=== PATIENT | female | born 1995 | race African-American/Black ===

== ENCOUNTER 2018-04-18 00:55 | Emergency (ER) | payer OTHER ==
[~2018-04-18] VITALS: Ht 154.9 cm; Wt 63.5 kg
[~2018-04-18 00:55] MED LIST: AMOX500C PO; CLOT12CR2 TP; PRED20TA PO; PROAIR HFA8.5 GM INH; TRIA15CR TP; TRIA15CR3 TP
[2018-04-18 01:25] VITALS: BP 116/62
[2018-04-18 01:50] LABS: BILIRUBIN,URINE NEGATIVE (NEG); CLARITY,URINE CLEAR; COLOR,URINE YELLOW; NITRITE,URINE NEGATIVE (NEG); PH,URINE 7.5; PROTEIN,URINE >=300 mg/dL (NEG-TRACE); UROBILINOGEN,URINE 0.2 mg/dL (0.2 mg/dL)
[2018-04-18 01:56] LABS: BACTERIA,URINE MANY /HPF (0-FEW); RBC,URINE OCC /HPF (0-2); WBC,URINE 20-40 /HPF (0-4)
[2018-04-18 01:57] LABS: SQUAMOUS EPITHELIAL CELL,UR MOD /LPF
--- NOTE | 2018-04-18 02:55 | PHYS DOC ---
Past Medical History Past Medical History: Asthma Additional Past Medical Histor: seasonal allergies, " skin condition" Past Surgical History: Alcohol Use: None Drug Use: None Adult General Chief Complaint Chief Complaint: VAGINAL BLEEDING HPI HPI Patient is a 22 year old female who presents with pelvic pain and vaginal discharge. She states she recently had -control implanted into her arm 3 weeks earlier. She tonight complains of irregular vaginal discharge and some pain. She has been having symptoms over the last 2-3 days. She was last sexually active one month ago. She denies fever or chills. She does endorse some irregular vaginal bleeding since the implant was placed. No nausea or vomiting. No fever. No flank pain. Review of Systems Review of Systems Constitutional: Denies fever or chills HENT: Denies Respiratory: Denies Cardiovascular: No additional information GI: Denies abdominal pain : Denies dysuria or hematuria Musculoskeletal: Denies back pain Integument: Denies rash or skin lesions Neurologic: Denies headache All other systems were reviewed and found to be within normal limits, except as documented in this note. Current Medications Current Medications Current Medications Medications (Trade) Dose Ordered Sig/Joan Start Time Stop Time Status Last Admin Dose Admin Azithromycin (Zithromax) 1,000 mg 1X ONCE 04/18/18 03:00 04/18/18 03:01 DC Ceftriaxone Sodium (Rocephin Im) 250 mg 1X ONCE 04/18/18 03:00 04/18/18 03:01 DC Metronidazole (Flagyl) 1,000 mg 1X ONCE 04/18/18 03:15 04/18/18 03:16 UNV Allergies Allergies Allergies Coded Allergies Type Severity Reaction Last Updated Verified Penicillins Allergy Intermediate 04/18/18 Yes Physical Exam Physical Exam Constitutional: Well developed, well nourished, no acute distress, non-toxic appearance HENT: Normocephalic, atraumatic, bilateral external ears normal, oropharynx moist Eyes: PERRLA Neck: Normal range of motion Cardiovascular:Heart rate regular rhythm, no murmur Lungs & Thorax: Bilateral breath sounds clear to auscultation Abdomen: Bowel sounds normal, soft, no tenderness Skin: Warm, dry, no erythema, no rash Neurologic: Alert and oriented X 3 Psychologic: Affect normal Pelvic: Normal external female genitalia. Vaginal mucosa is moist and uninflamed. There is copious white discharge present in the vault. The patient does have cervical motion tenderness. She has right adnexal tenderness but no mass. The left adnexal exam is normal. Current Patient Data Vital Signs Vital Signs Date Time Temp Pulse Resp B/P (MAP) Pulse Ox O2 Delivery O2 Flow Rate FiO2 04/18/18 01:25 98.1 78 16 116/62 (80) 98 Room Air 98.1 Lab Values Laboratory Tests Test 04/18/18 01:15 04/18/18 01:39 Urine Collection Type Unknown Urine Color Yellow Urine Clarity Clear Urine pH 7.5 Urine Specific [place] 1.015 Urine Protein >=300 mg/dL (NEG-TRACE) Urine Glucose (UA) Negative mg/dL (NEG) Urine Ketones (Stick) Negative mg/dL (NEG) Urine Blood Negative (NEG) Urine Nitrite Negative (NEG) Urine Bilirubin Negative (NEG) Urine Urobilinogen Dipstick 0.2 mg/dL (0.2 mg/dL) Urine Leukocyte Esterase Small (NEG) Urine RBC Occ /HPF (0-2) Urine WBC 20-40 /HPF (0-4) Urine Squamous Epithelial Cells Mod /LPF Urine Bacteria Many /HPF (0-FEW) Urine Mucus Mod /LPF POC Urine HCG, Qualitative Hcg negative (Negative) Microbiology 04/18/18 Wet Prep - Final, Complete EKG EKG [] Radiology/Procedures Radiology/Procedures [] Course & Med Decision Making Course & Med Decision Making Pertinent Labs and Imaging studies reviewed. (See chart for details) Patient is seen and examined in the emergency department. Pelvic exam as documented above. The exam was accompanied by a female registered nurse. Given the cervical motion tenderness and discharge, the patient will be given Rocephin and azithromycin in the emergency department. She will be discharged home on doxycycline. Urine test is negative and UA does not appear infected. 03:05: Wet mount is received. The patient does have Trichomonas. She is given 2 g of Flagyl in the emergency department. Plan remains for discharge home she' ll be placed on doxycycline. Sexual precautions are discussed with the patient. She is advised to refrain from sexual intercourse until her partner has also been evaluated and treated. She will return to the ER for any new or worsening symptoms. Dragon Disclaimer Dragon Disclaimer This electronic medical record was generated, in whole or in part, using a voice recognition dictation system. Departure Departure Referrals: NO PCP (PCP) Scripts Doxycycline Hyclate (DOXYCYCLINE HYCLATE) 100 Mg Capsule 1 CAP PO BID, #20 CAP Prov: PEREZ ALY DO 04/18/18 PEREZ ALY DO Apr 18, 2018 02:55
[2018-04-18] MEDS ORDERED: cefTRIAXone IM 250 MG VIAL IM ONE (03:00)
[2018-04-18] MEDS ORDERED: AZITHROMYCIN 250 MG TABLET. PO ONE (03:00)
[2018-04-18] MEDS ORDERED: DOXY100C2 PO (03:11)
[2018-04-18] MEDS ORDERED: metroNIDAZOLE 500 MG TABLET PO ONE (03:15)
[2018-04-20 15:26] LABS: GC PROBE Negative (Negative)
== END 2018-04-18 03:25 | disposition home or self-care (01) ==
LOC: ER 00:55
DX: R10.2 Pelvic and perineal pain (principal); N89.8 Other specified noninflammatory disorders of vagina; J45.909 Unspecified asthma, uncomplicated; Z88.0 Allergy status to penicillin
CPT/HCPCS: 81001; 81025; 87491; 87591; 96372; 99284; J0696; Q0111; Q0144

== ENCOUNTER 2018-09-14 15:09 | Emergency (ER) | payer OTHER ==
[~2018-09-14] VITALS: Ht 157.5 cm; Wt 63.5 kg
[~2018-09-14 15:09] MED LIST changes: +ALBU2.5V8 INH; +DOXY100C2 PO; -PROAIR HFA8.5 GM INH
[2018-09-14 17:10] VITALS: BP 115/76
[2018-09-14] MEDS ORDERED: ONDANSETRON ODT 4 MG TAB.RAPDIS. PO ONE (17:30)
[2018-09-14] MEDS ORDERED: HYDROcodone/APAP 5/325MG 1 TAB TABLET PO ONE (17:30)
[2018-09-14] MEDS ORDERED: NAPROXEN 500 MG TABLET PO STA (17:30)
[2018-09-14 18:08] LABS: BILIRUBIN,URINE NEGATIVE (NEG); CLARITY,URINE CLEAR; COLOR,URINE YELLOW; NITRITE,URINE NEGATIVE (NEG); PH,URINE 6.5; PROTEIN,URINE >=300 mg/dL (NEG-TRACE); UROBILINOGEN,URINE 0.2 mg/dL (0.2 mg/dL)
[2018-09-14 18:14] LABS: BACTERIA,URINE 0 /HPF (0-FEW); RBC,URINE 0 /HPF (0-2); SQUAMOUS EPITHELIAL CELL,UR FEW /LPF; WBC,URINE RARE /HPF (0-4)
[2018-09-14 18:16] LABS: BARBITURATES NEG (NEG); BENZODIAZEPINES NEG (NEG); CANNABINOIDS NEG (NEG); COCAINE NEG (NEG); METHADONE NEG (NEG); OPIATES NEG (NEG); PHENCYCLIDINE NEG (NEG)
[2018-09-14 18:20] LABS: AMPHETAMINE/METHAMPHETAMINE NEG (NEG)
--- NOTE | 2018-09-14 18:21 | RAD ---
PELVIS COMPLETE History: Pelvic pain for one month Comparison: None. Findings: Multiple transabdominal sonographic images of pelvis are submitted. Uterus measured 10.3 x 3.6 x 5.2 cm. Endometrium measured 0.4 cm. Right ovary measured 2.8 x 1.7 x 1.6 cm. Left ovary measured 3.3 x 3.1 cm x 3 cm. There is normal color flow and low resistance vascularity of the ovaries bilaterally. There is a hypoechoic lesion left ovary about 3.3 cm x 3 x 2.4 in size. There is minimal free fluid. Impression: 1. There is left ovarian cyst up to 3.3 cm, minimal free fluid. Electronically signed by: Alexander Rivera MD (09/14/2018 6:18 PM) [facility]
--- NOTE | 2018-09-14 18:26 | PHYS DOC ---
Past Medical History Past Medical History: Asthma Additional Past Medical Histor: seasonal allergies, " skin condition" Past Surgical History: Alcohol Use: None Drug Use: None Adult General Chief Complaint Chief Complaint: PELVIC PAIN HPI HPI Patient is a 23 year old female presenting to the ED today complaining of a sharp 10 out of 10 intermittent left pelvic pain that began a month ago. Patient denies anything specifically exacerbating or relieving the pain. She believes the pain is coming from her Implanon which she's had for 1 year. She would like the Implanon removed. Denies any concerns for STDs. Review of Systems Review of Systems Constitutional: Denies fever or chills [] Eyes: Denies change in visual acuity, redness, or eye pain [] HENT: Denies nasal congestion or sore throat [] Respiratory: Denies cough or shortness of breath [] Cardiovascular: No additional information not addressed in HPI [] GI: Reports left pelvic pain. Denies nausea, vomiting, bloody stools or diarrhea [] : Denies dysuria or hematuria [] Musculoskeletal: Denies back pain or joint pain [] Integument: Denies rash or skin lesions [] Neurologic: Denies headache, focal weakness or sensory changes [] All other systems were reviewed and found to be within normal limits, except as documented in this note. Current Medications Current Medications Current Medications Medications (Trade) Dose Ordered Sig/Joan Start Time Stop Time Status Last Admin Dose Admin Acetaminophen/ Hydrocodone Bitart (Lortab 5/325) 2 tab 1X ONCE 09/14/18 17:30 09/14/18 17:35 DC 09/14/18 17:46 2 TAB Naproxen (Naprosyn) 500 mg 1X STAT 09/14/18 17:30 09/14/18 17:35 DC 09/14/18 17:45 500 MG Ondansetron HCl (Zofran Odt) 4 mg 1X ONCE 09/14/18 17:30 09/14/18 17:35 DC 09/14/18 17:45 4 MG Allergies Allergies Allergies Coded Allergies Type Severity Reaction Last Updated Verified Penicillins Allergy Intermediate 04/18/18 Yes Physical Exam Physical Exam Constitutional: Well developed, well nourished, no acute distress, non-toxic appearance. [] HENT: Normocephalic, atraumatic, bilateral external ears normal, oropharynx moist, no oral exudates, nose normal. [] Eyes: PERRLA, EOMI, conjunctiva normal, no discharge. [] Neck: Normal range of motion, no tenderness, supple, no stridor. [] Cardiovascular:Heart rate regular rhythm, no murmur [] Lungs & Thorax: Bilateral breath sounds clear to auscultation [] Abdomen: Bowel sounds normal, soft, no tenderness, no masses, no pulsatile masses. [] Pelvic exam External pelvic appears normal, cervix is visualized, closed, no CMT, mild left adnexal tenderness on exam, no right adnexal tenderness, small amount of white discharge in the vaginal vault. Skin: Warm, dry, no erythema, no rash. [] Back: No tenderness, no CVA tenderness. [] Extremities: No tenderness, no cyanosis, no clubbing, ROM intact, no edema. [] Neurologic: Alert and oriented X 3, normal motor function, normal sensory function, no focal deficits noted. [] Psychologic: Affect normal, judgement normal, mood normal. [] Current Patient Data Vital Signs Vital Signs Date Time Temp Pulse Resp B/P (MAP) Pulse Ox O2 Delivery O2 Flow Rate FiO2 09/14/18 17:10 98.3 72 115/76 (89) 100 98.3 09/14/18 16:24 18 Room Air Lab Values Laboratory Tests Test 09/14/18 17:15 09/14/18 17:19 Urine Collection Type Void Urine Color Yellow Urine Clarity Clear Urine pH 6.5 Urine Specific [place] 1.015 Urine Protein >=300 mg/dL (NEG-TRACE) Urine Glucose (UA) Negative mg/dL (NEG) Urine Ketones (Stick) Negative mg/dL (NEG) Urine Blood Negative (NEG) Urine Nitrite Negative (NEG) Urine Bilirubin Negative (NEG) Urine Urobilinogen Dipstick 0.2 mg/dL (0.2 mg/dL) Urine Leukocyte Esterase Negative (NEG) Urine RBC 0 /HPF (0-2) Urine WBC Rare /HPF (0-4) Urine Squamous Epithelial Cells Few /LPF Urine Bacteria 0 /HPF (0-FEW) Urine Opiates Screen Neg (NEG) Urine Methadone Screen Neg (NEG) Urine Barbiturates Neg (NEG) Urine Phencyclidine Screen Neg (NEG) Urine Amphetamine/Methamphetamine Neg (NEG) Urine Benzodiazepines Screen Neg (NEG) Urine Cocaine Screen Neg (NEG) Urine Cannabinoids Screen Neg (NEG) Urine Ethyl Alcohol Neg (NEG) POC Urine HCG, Qualitative Hcg negative (Negative) Microbiology 09/14/18 Wet Prep - Final, Complete EKG EKG [] Radiology/Procedures Radiology/Procedures [] Course & Med Decision Making Course & Med Decision Making Pertinent Labs and Imaging studies reviewed. (See chart for details) This is a 23-year-old female patient presenting to the ED today with pelvic pain that began a month ago. She is concerned the pain is coming from an Implanon she's had for 1 year and is requesting the Implanon to be removed. Informed patient we do not remove Implanon in the ED. I recommended following up with her OB for this. Negative urine hCG, urine analysis is negative for infection, wet prep noted for BV, discharged with Flagyl. Preliminary pelvic ultrasound shows patient has a 3.3 cm left ovarian cyst. Blood flow to bilateral ovaries. Patient was discharged to follow-up with an [facility] for this. Given prescription for tramadol as needed for pain. Dragon Disclaimer Dragon Disclaimer This electronic medical record was generated, in whole or in part, using a voice recognition dictation system. Departure Departure Impression: Primary Impression: Ovarian cyst Additional Impression: Bacterial vaginosis Disposition: 01 HOME, SELF-CARE Condition: STABLE Referrals: NO PCP (PCP) BRIAN SMITH MD Follow-up in one week Patient Instructions: Bacterial Vaginosis, [id number], Ovarian Cyst, Easy-to- Read Additional Instructions: You were evaluated in the emergency room and noted to have a left ovarian cyst as well as bacterial vaginosis. We put you on antibiotics for bacterial vaginosis. You need to follow-up with the [facility] for the left ovarian cyst as well as removal of your Implanon. We put you on pain medications, take them as needed for pain. You can also apply a heating pad to your abdomen it will help with pain. Scripts Ondansetron (ONDANSETRON ODT) 4 Mg Tab.rapdis 1 TAB PO PRN Q6-8HRS, #16 TAB Prov: MUTUNGA,GUIDO INFRASTRUCTURE DESIGN ENGINEER 09/14/18 Metronidazole (FLAGYL) 500 Mg Tablet 1 TAB PO BID, #14 TAB Prov: MUTUNGA,GUIDO INFRASTRUCTURE DESIGN ENGINEER 09/14/18 Tramadol Hcl (TRAMADOL HCL) 50 Mg Tablet 50 MG PO Q6HRS PRN for PAIN, #20 TAB Prov: GUIDO COREAS APRN 09/14/18 Problem Qualifiers Primary Impression: Ovarian cyst Laterality: left Qualified Codes: N83.202 - Unspecified ovarian cyst, left side GUIDO COREAS APRN Sep 14, 2018 18:26
[2018-09-14] MEDS ORDERED: ONDA4TAB12 PO (18:46)
[2018-09-14] MEDS ORDERED: METR500T PO (18:46)
[2018-09-14] MEDS ORDERED: TRAM50TA PO (18:46)
[2018-09-15 13:22] LABS: GC PROBE Negative (Negative)
== END 2018-09-14 19:35 | disposition home or self-care (01) ==
LOC: ER 15:09
DX: N83.202 Unspecified ovarian cyst, left side (principal); N76.0 Acute vaginitis; B96.89 Other specified bacterial agents as the cause of diseases classified elsewhere; J45.909 Unspecified asthma, uncomplicated; Z88.0 Allergy status to penicillin
CPT/HCPCS: 76856; 80307; 81001; 81025; 87491; 87591; 99284; Q0111; Q0162

== ENCOUNTER 2018-12-13 18:52 | Emergency (ER) | payer OTHER ==
[~2018-12-13] VITALS: Ht 162.6 cm; Wt 63.5 kg
[~2018-12-13 18:52] MED LIST changes: +METR500T PO; +ONDA4TAB12 PO; +TRAM50TA PO
[2018-12-13 19:55] LABS: BILIRUBIN,URINE NEGATIVE (NEG); CLARITY,URINE CLEAR; COLOR,URINE YELLOW; NITRITE,URINE NEGATIVE (NEG); PH,URINE 6.5; PROTEIN,URINE >=300 mg/dL (NEG-TRACE)
[2018-12-13 20:06] LABS: BACTERIA,URINE FEW /HPF (0-FEW); GRANULAR CASTS,URINE MODERATE /HPF; HYALINE CASTS, URINE MODERATE /HPF; SQUAMOUS EPITHELIAL CELL,UR FEW /LPF
--- NOTE | 2018-12-13 21:54 | PHYS DOC ---
Past Medical History Past Medical History: Asthma, Other Additional Past Medical Histor: seasonal allergies, " skin condition" Past Surgical History: Alcohol Use: None Drug Use: None Adult General Chief Complaint Chief Complaint: ABDOMINAL PAIN HPI HPI Patient is a 23 year old female who presents the ER for evaluation of suprapubic abdominal pain. Patient denies any dysuria but expresses concern for STDs. Patient states that she was told by a sexual partner that he was having STD symptoms and was planning testing. Patient reports sexual activity without protection. Patient reports progressive mild (1-2) suprapubic abdominal pain for the past 2 days. No dysuria. No nausea, no vomiting, no diarrhea, no constipation, no fever, no GI bleed symptoms. States that she had excellent on removed approximately 2 months ago and has not restarted any further control. States that she has not had return of her periods. Denies any vaginal discharge. Review of Systems Review of Systems Constitutional: Denies fever or chills [] Eyes: Denies change in visual acuity, redness, or eye pain [] HENT: Denies nasal congestion or sore throat [] Respiratory: Denies cough or shortness of breath [] Cardiovascular: No chest pain, no palpitations, no LE edema GI: +abdominal pain, nausea, vomiting, bloody stools or diarrhea [] : Denies dysuria or hematuria [] Musculoskeletal: Denies back pain or joint pain [] Integument: Denies rash or skin lesions [] Neurologic: Denies headache, focal weakness or sensory changes [] Endocrine: Denies polyuria or polydipsia [] All other systems were reviewed and found to be within normal limits, except as documented in this note. Current Medications Current Medications Current Medications Medications (Trade) Dose Ordered Sig/Joan Start Time Stop Time Status Last Admin Dose Admin Azithromycin (Zithromax) 1,000 mg 1X ONCE 12/13/18 22:15 12/13/18 22:15 DC 12/13/18 22:00 1,000 MG Ceftriaxone Sodium (Rocephin Im) 250 mg 1X ONCE 12/13/18 22:15 12/13/18 22:15 DC 12/13/18 22:00 250 MG Allergies Allergies Allergies Coded Allergies Type Severity Reaction Last Updated Verified Penicillins Allergy Intermediate 04/18/18 Yes Physical Exam Physical Exam Constitutional: Well developed, well nourished, no acute distress, non-toxic appearance. [] HENT: Normocephalic, atraumatic, Eyes: PERRLA, EOMI, Neck: Normal range of motion, no tenderness, supple, no stridor. [] Cardiovascular:Heart rate regular rhythm, no murmur [] Lungs & Thorax: Bilateral breath sounds clear to auscultation [] Abdomen: Bowel sounds normal, soft, no tenderness, no guarding, no rebound tenderness, no masses, no pulsatile masses. [] Skin: Warm, dry, no erythema, no rash. [] Neurologic: Alert and oriented X 3, no focal deficits noted. [] Psychologic: Affect normal, judgement normal, mood normal. [] Current Patient Data Vital Signs Vital Signs Date Time Temp Pulse Resp B/P (MAP) Pulse Ox O2 Delivery O2 Flow Rate FiO2 12/13/18 19:04 98.6 72 20 133/101 (112) 98 Room Air 98.6 Lab Values Laboratory Tests Test 12/13/18 19:00 12/13/18 19:51 Urine Collection Type Unknown Urine Color Yellow Urine Clarity Clear Urine pH 6.5 Urine Specific [place] 1.020 Urine Protein >=300 mg/dL (NEG-TRACE) Urine Glucose (UA) Negative mg/dL (NEG) Urine Ketones (Stick) Negative mg/dL (NEG) Urine Blood Negative (NEG) Urine Nitrite Negative (NEG) Urine Bilirubin Negative (NEG) Urine Urobilinogen Dipstick 1.0 mg/dL (0.2 mg/dL) Urine Leukocyte Esterase Negative (NEG) Urine RBC 1-2 /HPF (0-2) Urine WBC 11-20 /HPF (0-4) Urine Squamous Epithelial Cells Few /LPF Urine Bacteria Few /HPF (0-FEW) Urine Hyaline Casts Moderate /HPF Urine Granular Casts Moderate /HPF Urine Mucus Mod /LPF POC Urine HCG, Qualitative Hcg negative (Negative) Microbiology 12/13/18 Wet Prep - Final, Complete EKG EKG [] Radiology/Procedures Radiology/Procedures [] Course & Med Decision Making Course & Med Decision Making Pertinent Labs and Imaging studies reviewed. (See chart for details) []2153: Delay in ER course secondary to floor code. At time of my arrival back to the ER patient was actually leaving AMA. I was able to convince the patient to stay for treatment for STDs. Urine as above. Patient with no dysuria and history of likely STD exposure. We will not treat as UTI, pending urine culture as she is asymptomatic from that regards. Patient given IM ceftriaxone and a gram of azithromycin with self swab vaginal cultures pending. Patient declined a pelvic exam secondary to wanting to leave the ER. ER return precautions given. Patient verbalized understanding. All questions answered. No reproducible tenderness and nonsurgical abdomen. Dragon Disclaimer Dragon Disclaimer This electronic medical record was generated, in whole or in part, using a voice recognition dictation system. Departure Departure Impression: Primary Impression: Sexually transmitted disease (STD) Disposition: HOME, SELF-CARE Condition: STABLE Referrals: NO PCP (PCP) Patient Instructions: Sexually Transmitted Disease Additional Instructions: Please read the attached handouts. Your cultures have not resulted but we are treating prophylactically for STDs. You will be called if you require further treatment. Return to the ER if your symptoms worsen or you have any other concerns. ALICIA BISWAS DO Dec 13, 2018 21:54
[2018-12-13] MEDS ORDERED: AZITHROMYCIN 250 MG TABLET. PO ONE (22:15)
[2018-12-13] MEDS ORDERED: cefTRIAXone IM 250 MG VIAL IM ONE (22:15)
[2018-12-15 15:16] LABS: GC PROBE Negative (Negative)
== END 2018-12-13 22:08 | disposition home or self-care (01) ==
LOC: ER 18:52
DX: A64 Unspecified sexually transmitted disease (principal); J45.909 Unspecified asthma, uncomplicated; Z88.0 Allergy status to penicillin
CPT/HCPCS: 81001; 81025; 87491; 87591; 96372; 99284; J0696; Q0111; Q0144

== ENCOUNTER 2019-04-02 12:17 | Emergency (ER) | payer OTHER ==
[~2019-04-02] VITALS: Ht 160 cm; Wt 73.2 kg
[2019-04-02 13:06] VITALS: BP 112/72
[2019-04-02 13:10] LABS: BILIRUBIN,URINE NEGATIVE (NEG); CLARITY,URINE CLEAR; COLOR,URINE YELLOW; NITRITE,URINE NEGATIVE (NEG); PH,URINE 6.5; PROTEIN,URINE >=300 mg/dL (NEG-TRACE)
[2019-04-02 13:19] LABS: SQUAMOUS EPITHELIAL CELL,UR MOD /LPF
[2019-04-02 13:20] LABS: BACTERIA,URINE MODERATE /HPF (0-FEW)
[2019-04-02 13:21] LABS: RBC,URINE OCC /HPF (0-2)
[2019-04-02] MEDS ORDERED: NAPR-683 PO (13:56)
[2019-04-02] MEDS ORDERED: CIPR250T30 PO (13:56)
[2019-04-02] MEDS ORDERED: OFLO5DRO RIGHTEYE (13:56)
--- NOTE | 2019-04-02 13:56 | PHYS DOC ---
Past Medical History Past Medical History: Asthma Additional Past Medical Histor: seasonal allergies, " skin condition" std Past Surgical History: Alcohol Use: Occasionally Drug Use: None Adult General Chief Complaint Chief Complaint: ABDOMINAL PAIN [facility] Patient is a 23 year old female who presents with complaining of abdominal pain and eye problem. Patient complaining of suprapubic pain for the last 2-3 as a constant and aching pain without radiation. Patient complaining of urinary frequency without dysuria. Patient denies nausea and vomiting, diarrhea and constipation, fever and chills, vaginal discharge or bleeding. Patient states she usually gets this same pain before her menstruation but did not start bleeding hit and is not sure about . Patient also complaining of right eye redness and irritation with no discharge for the last or 2-3 days without injury and sick contact. Review of Systems Review of Systems Constitutional: Denies fever or chills [] Eyes: Reports right eye redness and blurred vision HENT: Denies nasal congestion or sore throat [] Respiratory: Denies cough or shortness of breath [] Cardiovascular: No additional information not addressed in HPI [] GI: Reports abdominal pain, denies nausea, vomiting, bloody stools or diarrhea [] : Denies dysuria or hematuria [] Musculoskeletal: Denies back pain or joint pain [] Integument: Denies rash or skin lesions [] Neurologic: Denies headache, focal weakness or sensory changes [] Endocrine: Denies polyuria or polydipsia [] All other systems were reviewed and found to be within normal limits, except as documented in this note. Allergies Allergies Allergies Coded Allergies Type Severity Reaction Last Updated Verified Penicillins Allergy Intermediate 04/18/18 Yes Physical Exam Physical Exam Constitutional: Well developed, well nourished, mild distress, non-toxic appearance. [] HENT: Normocephalic, atraumatic. Eyes: PERRLA, EOMI, right conjunctiva erythema with mild discharge. Neck: Normal range of motion, no tenderness, supple, no stridor. [] Cardiovascular:Heart rate regular rhythm, no murmur [] Lungs & Thorax: Bilateral breath sounds clear to auscultation [] Abdomen: Bowel sounds normal, soft, suprapubic guarding, no tenderness, no masses, no pulsatile masses. [] Skin: Warm, dry, no erythema, no rash. [] Back: No tenderness, no CVA tenderness. [] Extremities: No tenderness, no cyanosis, no clubbing, ROM intact, no edema. [] Neurologic: Alert and oriented X 3, no focal deficits noted. [] Psychologic: Affect normal, judgement normal, mood normal. [] Current Patient Data Vital Signs Vital Signs Date Time Temp Pulse Resp B/P (MAP) Pulse Ox O2 Delivery O2 Flow Rate FiO2 04/02/19 13:06 72 16 112/72 (85) 97 Room Air 04/02/19 12:33 98.6 98.6 Lab Values Laboratory Tests Test 04/02/19 12:33 04/02/19 12:48 Urine Collection Type Unknown Urine Color Yellow Urine Clarity Clear Urine pH 6.5 Urine Specific [place] 1.020 Urine Protein >=300 mg/dL (NEG-TRACE) Urine Glucose (UA) Negative mg/dL (NEG) Urine Ketones (Stick) Negative mg/dL (NEG) Urine Blood Negative (NEG) Urine Nitrite Negative (NEG) Urine Bilirubin Negative (NEG) Urine Urobilinogen Dipstick 1.0 mg/dL (0.2 mg/dL) Urine Leukocyte Esterase Negative (NEG) Urine RBC Occ /HPF (0-2) Urine WBC 5-10 /HPF (0-4) Urine Squamous Epithelial Cells Mod /LPF Urine Bacteria Moderate /HPF (0-FEW) Urine Mucus Marked /LPF POC Urine HCG, Qualitative Hcg negative (Negative) EKG EKG [] Radiology/Procedures Radiology/Procedures [] Course & Med Decision Making Course & Med Decision Making Pertinent Labs reviewed. (See chart for details) Evaluation of patient in ER showed 23-year-old female patient of abdominal pain and right eye erythema with concern for possible . Patient had negative test. UA showed UTI. Plan to discharge patient home with diagnosis of conjunctivitis and urinary tract infection. I've spoken with the patient and/or caregivers. I've explained the patient's condition, diagnosis and treatment plan based on information available to me at this time. I've answered the patient's and/or caregivers questions and addressed any concerns. The patient and/or caregivers have a good understanding the patient's diagnosis, condition and treatment plan as can be expected at this point. Vital signs have been stabilized. The patient's condition is stable for discharge from the emergency department. The patient will pursue further outpatient evaluation with her primary care provider or other designated consulting physician as outlined in the discharge instructions. Patient and/or caregivers are agreeable to this plan of care and follow-up instructions have been explained in detail. The patient and/or caregivers have received these instructions in written format and expressed understanding of these discharge instructions. The patient and her caregivers are aware that if any significant change in condition or worsening of symptoms should prompt him to immediately return to this of the closest emergency department. If an emergent department is not readily available I would encourage him to call 911. Luz Disclaimer Dragon Disclaimer This electronic medical record was generated, in whole or in part, using a voice recognition dictation system. Departure Departure Impression: Primary Impression: Urinary tract infection Additional Impression: Conjunctivitis Disposition: HOME, SELF-CARE (@1352) Condition: STABLE Referrals: NO PCP (PCP) Patient Instructions: Bacterial Conjunctivitis, Urinary Tract Infection Additional Instructions: Drink plenty of liquids Follow-up with your primary care physician in 3-5 days Return to ER if not getting better Scripts Ofloxacin (OCUFLOX) 5 Ml Drops 2 DROP RIGHTEYE Q6HRS for 7 Days, #1 BOTTLE Take for 7 days Prov: JOSE ARMANDO ANGELES MD 04/02/19 Naproxen (NAPROSYN) 500 Mg Tablet 1 TAB PO BID for pain, #20 TAB Prov: JOSE ARMANDO ANGELES MD 04/02/19 Ciprofloxacin Hcl (CIPRO) 250 Mg Tablet 1 TAB PO BID for infection, #14 TAB Prov: JOSE ARMANDO ANGELES MD 04/02/19 Problem Qualifiers Primary Impression: Urinary tract infection Urinary tract infection type: site unspecified Hematuria presence: without hematuria Qualified Codes: N39.0 - Urinary tract infection, site not specified Additional Impression: Conjunctivitis Conjunctivitis type: acute Acute conjunctivitis type: unspecified Laterality: right Qualified Codes: H10.31 - Unspecified acute conjunctivitis, right eye JOSE ARMANDO ANGELES MD Apr 02, 2019 13:56
== END 2019-04-02 14:16 | disposition home or self-care (01) ==
LOC: ER 12:17
DX: N39.0 Urinary tract infection, site not specified (principal); H10.31 Unspecified acute conjunctivitis, right eye; J45.909 Unspecified asthma, uncomplicated; Z88.0 Allergy status to penicillin
CPT/HCPCS: 81001; 81025; 87086; 99284

== ENCOUNTER 2019-06-12 22:05 | Emergency (ER) | payer OTHER ==
[~2019-06-12] VITALS: Ht 157.5 cm; Wt 70.3 kg
[~2019-06-12 22:05] MED LIST changes: +CIPR250T30 PO; +NAPR-683 PO; +OFLO5DRO RIGHTEYE
[2019-06-12 22:15] VITALS: BP 120/56
[2019-06-12 22:34] LABS: BILIRUBIN,URINE NEGATIVE (NEG); CLARITY,URINE CLEAR; COLOR,URINE YELLOW; NITRITE,URINE NEGATIVE (NEG); PH,URINE 5.5; PROTEIN,URINE >=300 mg/dL (NEG-TRACE)
[2019-06-12 22:39] LABS: BACTERIA,URINE FEW /HPF (0-FEW); RBC,URINE OCC /HPF (0-2)
[2019-06-12 22:40] LABS: SQUAMOUS EPITHELIAL CELL,UR FEW /LPF
--- NOTE | 2019-06-12 22:43 | PHYS DOC ---
Past Medical History Past Medical History: Asthma Additional Past Medical Histor: seasonal allergies, " skin condition" std Past Surgical History: Alcohol Use: Occasionally Drug Use: None Adult General Chief Complaint Chief Complaint: ABDOMINAL PAIN HPI HPI Patient is a 23-year-old female who presents with complaint of suprapubic discomfort for the last 4 days. She also indicates that she has pain in her lower back. She states that she thought that the pain was due to her menstrual cycle coming on but states that the menstrual cycle still hasn't come on. She states that she is a little bit late for her menstrual cycle. She does not believe she is . She denies any vaginal discharge. She denies fever, chest pain or shortness breath.[] Review of Systems Review of Systems Constitutional: Denies fever or chills [] Respiratory: Denies cough or shortness of breath [] Cardiovascular: No additional information not addressed in HPI [] GI: Denies complains of suprapubic pain without vomiting or diarrhea [] : Denies dysuria or hematuria [] Musculoskeletal: Denies back pain or joint pain [] Integument: Denies rash or skin lesions [] Allergies Allergies Allergies Coded Allergies Type Severity Reaction Last Updated Verified Penicillins Allergy Intermediate 04/18/18 Yes Physical Exam Physical Exam Constitutional: Well developed, well nourished, no acute distress, non-toxic appearance. [] HENT: Normocephalic, atraumatic, bilateral external ears normal, oropharynx moist, no oral exudates, nose normal. [] Eyes: PERRLA, EOMI, conjunctiva normal, no discharge. [] Neck: Normal range of motion, no tenderness, supple. [] Cardiovascular:Heart rate regular rhythm, no murmur [] Lungs & Thorax: Bilateral breath sounds clear to auscultation [] Abdomen: Bowel sounds normal, soft, with mild suprapubic tenderness. [] Skin: Warm, dry, no erythema, no rash. [] Extremities: No tenderness, no cyanosis, no clubbing, ROM intact, no edema. [] Neurologic: Alert and oriented X 3, no focal deficits noted. [] Current Patient Data Vital Signs Vital Signs Date Time Temp Pulse Resp B/P (MAP) Pulse Ox O2 Delivery O2 Flow Rate FiO2 06/12/19 22:15 98.5 74 18 120/56 (77) 98 98.5 Lab Values Laboratory Tests Test 06/12/19 22:20 06/12/19 22:24 Urine Collection Type Unknown Urine Color Yellow Urine Clarity Clear Urine pH 5.5 Urine Specific [place] 1.025 Urine Protein >=300 mg/dL (NEG-TRACE) Urine Glucose (UA) Negative mg/dL (NEG) Urine Ketones (Stick) Trace mg/dL (NEG) Urine Blood Trace (NEG) Urine Nitrite Negative (NEG) Urine Bilirubin Negative (NEG) Urine Urobilinogen Dipstick 1.0 mg/dL (0.2 mg/dL) Urine Leukocyte Esterase Trace (NEG) Urine RBC Occ /HPF (0-2) Urine WBC 11-20 /HPF (0-4) Urine Squamous Epithelial Cells Few /LPF Urine Bacteria Few /HPF (0-FEW) Urine Mucus Mod /LPF Urine Trichomonas Present POC Urine HCG, Qualitative Hcg negative (Negative) EKG EKG [] Radiology/Procedures Radiology/Procedures [] Course & Med Decision Making Course & Med Decision Making Pertinent Labs and Imaging studies reviewed. (See chart for details) [] Dragon Disclaimer Dragon Disclaimer This electronic medical record was generated, in whole or in part, using a voice recognition dictation system. Departure Departure Impression: Primary Impression: Trichomonas vaginalis (TV) infection Disposition: 01 HOME, SELF-CARE Condition: STABLE Referrals: NO PCP (PCP) Patient Instructions: Trichomoniasis Scripts Metronidazole (METRONIDAZOLE) 500 Mg Tablet 1 TAB PO BID for 7 Days, #14 TAB 0 Refills Prov: BRIANNA AVALOS Jr. DO 06/12/19 BRIANNA AVALOS Jr. DO Jun 12, 2019 22:43
[2019-06-12 22:44] LABS: TRICHOMONAS,URINE PRESENT
[2019-06-12] MEDS ORDERED: METR-34 PO (23:01)
== END 2019-06-12 23:15 | disposition home or self-care (01) ==
LOC: ER 22:05
DX: A59.01 Trichomonal vulvovaginitis (principal); J45.909 Unspecified asthma, uncomplicated; Z88.0 Allergy status to penicillin; Z98.890 Other specified postprocedural states
CPT/HCPCS: 81001; 81025; 87086; 99284

== ENCOUNTER 2019-07-31 03:38 | Emergency (ER) | payer SELFPAY ==
[~2019-07-31] VITALS: Ht 157.5 cm; Wt 70.0 kg
[~2019-07-31 03:38] MED LIST changes: +METR-34 PO
--- NOTE | 2019-07-31 04:27 | PHYS DOC ---
Past Medical History Past Medical History: Asthma Additional Past Medical Histor: seasonal allergies, " skin condition" std Past Surgical History: Alcohol Use: Occasionally Drug Use: None Adult General Chief Complaint Chief Complaint: ABDOMINAL PAIN HPI HPI Patient is a 24 year old AA female who presents with mid abdominal pain, cramping and constipation. Patient states she has has not had a bowel movement past 3 days. Reports intermittent sharp migratory abdominal pain WITH palpation.. No urinary frequency urgency or burning. No vaginal discharge. No flank pain, urinary frequency urgency or hematuria. No other acute symptoms or complaints. No prior abdominal surgeries.[] Review of Systems Review of Systems ROS as per HPI All other systems were reviewed and found to be within normal limits, except as documented in this note. Allergies Allergies Allergies Coded Allergies Type Severity Reaction Last Updated Verified Penicillins Allergy Intermediate 04/18/18 Yes Physical Exam Physical Exam Constitutional: No acute distress, sleeping upon entering room. [] HENT: Normocephalic, atraumatic, bilateral external ears normal, oropharynx mois t, nose normal. [] Eyes: PERRLA, EOMI, conjunctiva normal. [] Neck: Normal range of motion, no tenderness. [] Cardiovascular:Heart rate regular rhythm.[] Lungs & Thorax: Bilateral breath sounds clear to auscultation [] Abdomen: Bowel sounds normal, soft, mid abdominal pain, min tenderness, Negative McBruney's sign. [] Skin: Warm, dry. [] Back: No tenderness. [] Extremities: No tenderness, no edema. [] Neurologic: Alert and oriented X 3, normal motor function, normal sensory function, no focal deficits noted. [] Psychologic: Affect normal, judgement normal, mood normal. [] Current Patient Data Vital Signs Vital Signs Date Time Temp Pulse Resp B/P (MAP) Pulse Ox O2 Delivery O2 Flow Rate FiO2 07/31/19 05:15 98.4 66 18 127/58 (81) 99 Room Air 98.4 Lab Values Laboratory Tests Test 07/31/19 03:47 07/31/19 03:52 Urine Collection Type Unknown Urine Color Yellow Urine Clarity Clear Urine pH 5.5 Urine Specific [place] 1.020 Urine Protein >=300 mg/dL (NEG-TRACE) Urine Glucose (UA) Negative mg/dL (NEG) Urine Ketones (Stick) Negative mg/dL (NEG) Urine Blood Negative (NEG) Urine Nitrite Negative (NEG) Urine Bilirubin Negative (NEG) Urine Urobilinogen Dipstick 1.0 mg/dL (0.2 mg/dL) Urine Leukocyte Esterase Negative (NEG) Urine RBC 0 /HPF (0-2) Urine WBC 5-10 /HPF (0-4) Urine Squamous Epithelial Cells Few /LPF Urine Amorphous Sediment Present /HPF Urine Bacteria Few /HPF (0-FEW) Urine Mucus Slight /LPF POC Urine HCG, Qualitative Hcg negative (Negative) EKG EKG [] Radiology/Procedures Radiology/Procedures [] Course & Med Decision Making Course & Med Decision Making Pertinent Labs and Imaging studies reviewed. (See chart for details) [Patient sleeping in the room requesting requesting blanket and pillow. Abdomen remains soft, nonsurgical on reevaluation. UA, negative. Results revi ewed. Patient reports constipation has likely cause of symptoms and is also requesting narcotic pain medications. She does appear to be in dsitress. PCP referral list provided. Patient further instructed to Counts include [facility] beds at the [facility] with concerns for possible STDs. Return precautions reviewed.] Dragon Disclaimer Dragon Disclaimer This electronic medical record was generated, in whole or in part, using a voice recognition dictation system. Departure Departure Impression: Primary Impression: Abdominal pain Additional Impression: Constipation Disposition: HOME, SELF-CARE Condition: STABLE Referrals: NO PCP (PCP) Patient Instructions: Abdominal Pain (Nonspecific), Constipation, Adult, [id number] Problem Qualifiers AMINTA KUMAR DO Jul 31, 2019 04:27
[2019-07-31 04:32] LABS: BILIRUBIN,URINE NEGATIVE (NEG); CLARITY,URINE CLEAR; COLOR,URINE YELLOW; NITRITE,URINE NEGATIVE (NEG); PH,URINE 5.5; PROTEIN,URINE >=300 mg/dL (NEG-TRACE)
[2019-07-31 04:38] LABS: SQUAMOUS EPITHELIAL CELL,UR FEW /LPF
[2019-07-31 04:40] LABS: AMORPHOUS SEDIMENT,UR PRESENT /HPF; BACTERIA,URINE FEW /HPF (0-FEW); RBC,URINE 0 /HPF (0-2)
[2019-07-31 05:15] VITALS: BP 127/58
== END 2019-07-31 05:35 | disposition home or self-care (01) ==
LOC: ER 03:38
DX: K59.00 Constipation, unspecified (principal); R10.84 Generalized abdominal pain; J45.909 Unspecified asthma, uncomplicated; Z98.890 Other specified postprocedural states; Z88.0 Allergy status to penicillin
CPT/HCPCS: 81001; 81025; 87086; 99284

== ENCOUNTER 2020-04-02 08:16 | Emergency (ER) | payer MEDICAID ==
[~2020-04-02] VITALS: Ht 160 cm; Wt 72.7 kg
--- NOTE | 2020-04-02 09:08 | ED.ADGEN ---
Past Medical History Past Medical History: No Pertinent History, Asthma Additional Past Medical Histor: seasonal allergies, " skin condition" std Past Surgical History: Smoking Status: Never Smoker Alcohol Use: Occasionally Drug Use: None Adult General Chief Complaint Chief Complaint: MULTIPLE COMPLAINTS HPI HPI Patient is a 24 year old female with multiple complaints, complaining frontal headache, abdominal pain, nausea and vomiting. The symptoms were worsening over the past couple of weeks, says last night she was having repeated episodes of emesis. Emesis is nonbloody nonbilious, happens a couple hours after eating. Is also noted urinary frequency and vaginal discharge. Status post medical in December, is concerned about . Has been taking ibuprofen for pain. Review of Systems Review of Systems Constitutional: Denies fever or chills. [] Eyes: Denies change in visual acuity. [] HENT: Denies nasal congestion or sore throat. [] Respiratory: Denies cough or shortness of breath. [] Cardiovascular: Denies chest pain or edema. [] GI: Diffuse abdominal pain, nausea, vomiting, constipation. [] : Denies dysuria. Has had urinary frequency and white vaginal discharge [] Musculoskeletal: Denies back pain or joint pain. [] Integument: Denies rash. [] Neurologic: Headache but denies focal weakness or sensory changes. [] Endocrine: Denies polyuria or polydipsia. [] Lymphatic: Denies swollen glands. [] Psychiatric: Denies depression or anxiety. [] Current Medications Current Medications Current Medications Medications (Trade) Dose Ordered Sig/Joan Start Time Stop Time Status Last Admin Dose Admin Info (CONTRAST GIVEN -- Rx MONITORING) 1 each PRN DAILY PRN 04/02/20 10:15 04/02/20 11:40 DC Iohexol (Omnipaque 300 Mg/ml) 75 ml 1X ONCE 04/02/20 10:15 04/02/20 10:16 DC 04/02/20 10:15 75 ML Ketorolac Tromethamine (Toradol 15mg Vial) 15 mg 1X ONCE 04/02/20 09:15 04/02/20 09:16 DC 04/02/20 10:24 15 MG Ondansetron HCl (Zofran) 4 mg 1X ONCE 04/02/20 09:15 04/02/20 09:16 DC 04/02/20 10:23 4 MG Allergies Allergies Allergies Coded Allergies Type Severity Reaction Last Updated Verified Penicillins Allergy Intermediate 04/18/18 Yes Physical Exam Physical Exam Constitutional: Well developed, well nourished, no acute distress, non-toxic appearance. [] HENT: Normocephalic, atraumatic, bilateral external ears normal, oropharynx moist, no oral exudates, nose normal. [] Eyes: PERRLA, EOMI, conjunctiva normal, no discharge. [] Neck: Normal range of motion, no tenderness, supple, no stridor. [] Cardiovascular:Heart rate regular rhythm, no murmur [] Lungs & Thorax: Bilateral breath sounds clear to auscultation [] Abdomen: Bowel sounds normal, soft, no tenderness, no masses, no pulsatile masses. Diffuse guarding [] Skin: Warm, dry, no erythema, no rash. [] Back: No tenderness, no CVA tenderness. [] Extremities: No tenderness, no cyanosis, no clubbing, ROM intact, no edema. [] Neurologic: Alert and oriented X 3, normal motor function, normal sensory function, no focal deficits noted. [] Psychologic: Affect normal, judgement normal, mood normal. [] Current Patient Data Vital Signs Vital Signs Date Time Temp Pulse Resp B/P (MAP) Pulse Ox O2 Delivery O2 Flow Rate FiO2 04/02/20 11:02 61 121/70 (87) 100 Room Air 04/02/20 08:49 99.1 17 99.1 Lab Values Laboratory Tests Test 04/02/20 08:25 04/02/20 08:35 04/02/20 09:34 Urine Collection Type Void Urine Color Yellow Urine Clarity Clear Urine pH 5.5 (<5.0-8.0) Urine Specific [place] 1.020 (1.000-1.030) Urine Protein 100 mg/dL (NEG-TRACE) Urine Glucose (UA) Negative mg/dL (NEG) Urine Ketones (Stick) Negative mg/dL (NEG) Urine Blood Negative (NEG) Urine Nitrite Negative (NEG) Urine Bilirubin Negative (NEG) Urine Urobilinogen Dipstick 1.0 mg/dL (0.2 mg/dL) Urine Leukocyte Esterase Negative (NEG) Urine RBC Occ /HPF (0-2) Urine WBC 1-4 /HPF (0-4) Urine Squamous Epithelial Cells Many /LPF Urine Bacteria Few /HPF (0-FEW) Urine Mucus Mod /LPF POC Urine HCG, Qualitative Hcg negative (Negative) White Blood Count 6.8 x10^3/uL (4.0-11.0) Red Blood Count 4.18 x10^6/uL (3.50-5.40) Hemoglobin 12.9 g/dL (12.0-15.5) Hematocrit 36.8 % (36.0-47.0) Mean Corpuscular Volume 88 fL (79-100) Mean Corpuscular Hemoglobin 31 pg (25-35) Mean Corpuscular Hemoglobin Concent 35 g/dL (31-37) Red Cell Distribution Width 13.2 % (11.5-14.5) Platelet Count 214 x10^3/uL (140-400) Neutrophils (%) (Auto) 68 % (31-73) Lymphocytes (%) (Auto) 28 % (24-48) Monocytes (%) (Auto) 4 % (0-9) Eosinophils (%) (Auto) 1 % (0-3) Basophils (%) (Auto) 0 % (0-3) Neutrophils # (Auto) 4.6 x10^3/uL (1.8-7.7) Lymphocytes # (Auto) 1.9 x10^3/uL (1.0-4.8) Monocytes # (Auto) 0.2 x10^3/uL (0.0-1.1) Eosinophils # (Auto) 0.0 x10^3/uL (0.0-0.7) Basophils # (Auto) 0.0 x10^3/uL (0.0-0.2) Sodium Level 138 mmol/L (136-145) Potassium Level 4.0 mmol/L (3.5-5.1) Chloride Level 105 mmol/L (98-107) Carbon Dioxide Level 23 mmol/L (21-32) Anion Gap 10 (6-14) Blood Urea Nitrogen 16 mg/dL (7-20) Creatinine 0.9 mg/dL (0.6-1.0) Estimated GFR (Cockcroft-Gault) 93.1 BUN/Creatinine Ratio 18 (6-20) Glucose Level 90 mg/dL (70-99) Calcium Level 8.7 mg/dL (8.5-10.1) Total Bilirubin 0.3 mg/dL (0.2-1.0) Aspartate Amino Transferase (AST) 16 U/L (15-37) Alanine Aminotransferase (ALT) 6 U/L (14-59) L Alkaline Phosphatase 38 U/L (46-116) L Total Protein 7.4 g/dL (6.4-8.2) Albumin 3.2 g/dL (3.4-5.0) L Albumin/Globulin Ratio 0.8 (1.0-1.7) L Lipase 91 U/L (73-393) Laboratory Tests 04/02/20 09:34 Laboratory Tests 04/02/20 09:34 Microbiology 04/02/20 Wet Prep - Final, Complete EKG EKG [] Radiology/Procedures Radiology/Procedures CT ABD PELV W/ IV CONTRST ONLY History: Reason: obstruction / Spl. Instructions: INJ 75ML OMNI 300 / History: Technique: After the administration of intravenous contrast, CT imaging was performed of the abdomen and pelvis. Multiplanar images are reviewed. Exposure: One or more of the following individualized dose reduction techniques were utilized for this examination: 1. Automated exposure control 2. Adjustment of the mA and/or kV according to patient size 3. Use of iterative reconstruction technique. Comparison: None Findings: Lower chest: No consolidation or pleural effusion. Abdomen and pelvis: Tiny right superior hepatic hypodensity measures 4 mm. The spleen, adrenal glands, pancreas and gallbladder are unremarkable. No biliary ductal dilatation. Normal appearance of the kidneys. No hydronephrosis. Decompressed urinary bladder. Normal appendix. Moderate stool-filled colon. No evidence of bowel obstruction. No pathologic lymphadenopathy. Small pelvic free fluid. Dominant left ovarian follicle measures 1.2 x 2.0 cm. Bones: No pathologic osseous lesions. Impression: 1. No acute abdominal or pelvic pathology. 2. Moderate colonic stool burden. 3. Small pelvic free fluid. 4. Tiny right hepatic lobe hypodensity, likely benign cyst or hemangioma although to small to further characterize. [] Course & Med Decision Making Course & Med Decision Making Pertinent Labs and Imaging studies reviewed. (See chart for details) [] Dragon Disclaimer Dragon Disclaimer This electronic medical record was generated, in whole or in part, using a voice recognition dictation system. Departure Departure Impression: Primary Impression: Constipated Disposition: 01 HOME, SELF-CARE Condition: STABLE Referrals: NO PCP (PCP) Patient Instructions: Constipation, Adult Additional Instructions: He is glycerin suppository, followed by an enema. Take magnesium citrate. After bowels cleared take daily stool softener or MiraLAX. FRANCA PENALOZA MD Apr 02, 2020 09:08
[2020-04-02] MEDS ORDERED: ONDANSETRON PF 4 MG/2 ML VIAL. IVP ONE (09:15)
[2020-04-02] MEDS ORDERED: KETOROLAC 15 MG/ML VIAL. IVP ONE (09:15)
[2020-04-02 09:20] LABS: BILIRUBIN,URINE NEGATIVE (NEG); CLARITY,URINE CLEAR; COLOR,URINE YELLOW; NITRITE,URINE NEGATIVE (NEG); PH,URINE 5.5 (<5.0-8.0); PROTEIN,URINE 100 mg/dL (NEG-TRACE)
[2020-04-02 09:34] LABS: BACTERIA,URINE FEW /HPF (0-FEW); RBC,URINE OCC /HPF (0-2)
[2020-04-02 09:46] LABS: BASO % 0 % (0-3); EOS % 1 % (0-3); HEMATOCRIT 36.8 % (36.0-47.0); HEMOGLOBIN 12.9 g/dL (12.0-15.5); LYMPH # 1.9 x10^3/uL (1.0-4.8); LYMPH % 28 % (24-48); MEAN CORPUSCULAR HEMOGLOBIN 31 pg (25-35); MEAN CORPUSCULAR HGB CONC 35 g/dL (31-37); MEAN CORPUSCULAR VOLUME 88 fL (79-100); MONO # 0.2 x10^3/uL (0.0-1.1); MONO % 4 % (0-9); NEUT # 4.6 x10^3/uL (1.8-7.7); NEUT % 68 % (31-73); PLATELET COUNT 214 x10^3/uL (140-400); RED BLOOD COUNT 4.18 x10^6/uL (3.50-5.40); RED CELL DISTRIBUTION WIDTH 13.2 % (11.5-14.5); WHITE BLOOD COUNT 6.8 x10^3/uL (4.0-11.0)
[2020-04-02 09:56] LABS: CALCIUM 8.7 mg/dL (8.5-10.1); CREATININE 0.9 mg/dL (0.6-1.0); GFR 93.1
[2020-04-02 10:01] LABS: ALBUMIN 3.2 g/dL (3.4-5.0); ALBUMIN/GLOBULIN RATIO 0.8 (1.0-1.7); TOTAL BILIRUBIN 0.3 mg/dL (0.2-1.0); TOTAL PROTEIN 7.4 g/dL (6.4-8.2)
[2020-04-02] MEDS ORDERED: CONTRAST GIVEN. MC PRN (10:15)
[2020-04-02] MEDS ORDERED: IOHEXOL 300 MG/ML 100ML VIAL. IV ONE (10:15)
--- NOTE | 2020-04-02 10:41 | RAD ---
CT ABD PELV W/ IV CONTRST ONLY History: Reason: obstruction / Spl. Instructions: INJ 75ML OMNI 300 / History: Technique: After the administration of intravenous contrast, CT imaging was performed of the abdomen and pelvis. Multiplanar images are reviewed. Exposure: One or more of the following individualized dose reduction techniques were utilized for this examination: 1. Automated exposure control 2. Adjustment of the mA and/or kV according to patient size 3. Use of iterative reconstruction technique. Comparison: None Findings: Lower chest: No consolidation or pleural effusion. Abdomen and pelvis: Tiny right superior hepatic hypodensity measures 4 mm. The spleen, adrenal glands, pancreas and gallbladder are unremarkable. No biliary ductal dilatation. Normal appearance of the kidneys. No hydronephrosis. Decompressed urinary bladder. Normal appendix. Moderate stool-filled colon. No evidence of bowel obstruction. No pathologic lymphadenopathy. Small pelvic free fluid. Dominant left ovarian follicle measures 1.2 x 2.0 cm. Bones: No pathologic osseous lesions. Impression: 1. No acute abdominal or pelvic pathology. 2. Moderate colonic stool burden. 3. Small pelvic free fluid. 4. Tiny right hepatic lobe hypodensity, likely benign cyst or hemangioma although to small to further characterize. Electronically signed by: Eliezer Choudhary DO (04/02/2020 10:38 AM) [id number]
[2020-04-02 11:02] VITALS: BP 121/70
[2020-04-03 21:07] LABS: GC PROBE Negative (Negative)
== END 2020-04-02 11:30 | disposition home or self-care (01) ==
LOC: ER 08:16
DX: K59.00 Constipation, unspecified (principal); R11.2 Nausea with vomiting, unspecified; R51.9 Headache, unspecified; J45.909 Unspecified asthma, uncomplicated; Z88.0 Allergy status to penicillin
CPT/HCPCS: 74177; 80053; 81001; 81025; 83690; 85025; 87491; 87591; 96374; 96375; 99285; J1885; J2405; Q0111; Q9967